=== PATIENT | male | born 1965 | race Caucasian/White ===

== ENCOUNTER 2018-08-25 06:14 | Inpatient (IN) | payer OTHER ==
--- NOTE | 2018-08-12 13:41 | HP ---
AMENDED REPORT NOW INCLUDES DESIGNATED COSIGNER HISTORY AND PHYSICAL: DATE OF ADMISSION/SURGERY: 08/25/18 DATE OF OFFICE VISIT: 08/12/18 SURGEON: Zeenat Gamboa MD *(DICTATED BY RICARDA GOFF) PROCEDURE: Right total hip arthroplasty. CHIEF COMPLAINT: Right hip pain. HISTORY OF PRESENT ILLNESS: Mr. Riley is a 52-year-old gentleman with end - stage osteoarthritis of the right hip. He has failed conservative treatment and elected to proceed with a right total hip arthroplasty. PAST MEDICAL HISTORY: Hypertension. PAST SURGICAL HISTORY: Denies. CURRENT MEDICATIONS: 1. Lisinopril 5 mg daily. 2. Meloxicam 15 mg daily. 3. Gabapentin. ALLERGIES: No known drug allergies. FAMILY HISTORY: Cancer. SOCIAL HISTORY: He is a 52-year-old gentleman, lives with his . He does not smoke or use drugs. Uses occasional alcohol. REVIEW OF SYSTEMS: A complete 14-point review of systems was reviewed with the patient. He denies history of DVT, PE, hepatitis, HIV, or anesthesia problems. PHYSICAL EXAMINATION GENERAL: He is well developed, well nourished, in no acute distress. VITAL SIGNS: He stands 75 inches tall. He weighs 220 pounds. His blood pressure 134/84, his heart rate is 76. HEENT: Normocephalic, atraumatic. NECK: Supple. No palpable lymph nodes. PULMONARY: Lungs are clear to auscultation bilaterally. CARDIO: Regular rate and rhythm. Strong S1, S2. ABDOMEN: Soft, nontender, nondistended. NEUROLOGICAL: He is alert and oriented x3. MUSCULOSKELETAL: Right lower extremity, the skin is intact. There are no open wounds or abrasions. He walks with an antalgic type gait favoring his right hip. He has decreased internal and external rotation of the right hip. He has 2 + dorsalis pedis pulse, intact sensation and his lower extremity muscle group strengths are intact at 5/5. ASSESSMENT AND PLAN: Mr. Riley is a 52-year-old gentleman with end-stage osteoarthritis of the right hip. He has failed conservative treatment and elected to proceed with a right total hip arthroplasty. The surgery is scheduled for 08/25/[address] Gamboa discussed the risks and benefits of the surgery at today's visit and all of his questions were answered. He will follow up with Dr. Gamboa 2 weeks after the surgery. RICARDA GOFF [id number]/CPS #: [id number] MTDD
[~2018-08-25 06:14] MED LIST: Buffered Lidocaine 0.9% SYRIN* 5 ML/SYR SYRINGE INTRADERM ONE; Dexamethasone IV* 4 MG/ML 1 ML (4 MG) IV SLOW PU ONE; Famotidine IV* 10 MG/ML 2 ML (20 mg) IV ONE
--- OUTSIDE RECORDS SUMMARY | 2018-08-25 06:19 | XMS REPORT ---
:1965 External Reference #:[id number] Author Organization [facility] Address [address] [place] [address] [place] [address] Phone [phone] Care Team Providers Name Role Phone Mark Macias MD Primary Care Physician Unavailable Payers Type Date Identification Numbers Payment Provider Subscriber Commercial Policy Number: [id number] [employer] Hien Riley Group Number: [id number] [id number] PayID: [id number] [place] [address] Problems Date Description Provider Status Onset: 07/10/2015 Hemicrania continua Remi Pringle M.D. Active Onset: 12/06/2017 Localized, primary osteoarthritis of Zeenat Gamboa M.D. 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 Gabapentin Active Capsules 100mg 210cap 2 caps Remi S. 000 s every Pino, morning, M.D. 2 every afternoon , and 3 caps at bedtime Glucosamine Active Capsules 500mg 2 by Unknown Sulfate 000 mouth every day Lisinopril Active Tablets 5mg 1 by Unknown 000 mouth every day GNP Allergy-D 00/00/0 Active Tablets ER 60-120mg Unknown 12 Hour 000 12HR Allergy & Congestion July-D 12 0000/0 Hx Tablets ER 60-120mg prn Unknown Hour Allergy & 000 - 12HR Congestion 018 Vital Signs Date Vital Result Comment 08/12/2018 Height 75 inches 6'3" Weight 220.00 lb BP Systolic 134 mmHg BP Diastolic 84 mmHg Respiratory Rate 16 /min Pain Level 4 BMI (Body Mass Index) 27.5 kg/m2 07/22/2018 Height 75 inches 6'3" Weight 221.00 lb BP Systolic Sitting 148 mmHg BP Diastolic Sitting 100 mmHg BMI (Body Mass Index) 27.6 kg/m2 04/06/2018 Height 75 inches 6'3" Weight 210.00 lb BP Systolic 125 mmHg BP Diastolic 83 mmHg Respiratory Rate 16 /min Pain Level 4 BMI (Body Mass Index) 26.2 kg/m2 12/06/2017 Height 75 inches 6'3" Weight 220.00 lb Heart Rate 68 /min BP Systolic 136 mmHg BP Diastolic 84 mmHg BMI (Body Mass Index) 27.5 kg/m2 07/21/2017 Height 75 inches 6'3" Weight 221.12 lb Heart Rate 82 /min BP Systolic 134 mmHg BP Diastolic 100 mmHg BMI (Body Mass Index) 27.6 kg/m2 07/21/2016 Height 75 inches 6'3" Weight 220.00 lb Heart Rate 60 /min BP Systolic Sitting 128 mmHg BP Diastolic Sitting 86 mmHg Respiratory Rate 14 /min BMI (Body Mass Index) 27.5 kg/m2 07/10/2015 Height 75 inches 6'3" Weight 218.00 lb Heart Rate 60 /min BP Systolic Sitting 136 mmHg BP Diastolic Sitting 82 mmHg Respiratory Rate 16 /min BMI (Body Mass Index) 27.2 kg/m2 07/10/2014 Height 75 inches 6'3" Weight 220.00 lb Heart Rate 67 /min BP Systolic Sitting 128 mmHg BP Diastolic Sitting 80 mmHg Respiratory Rate 16 /min BMI (Body Mass Index) 27.5 kg/m2 04/11/2013 Height 75 inches 6'3" Weight 220.00 lb Heart Rate 56 /min BP Systolic 150 mmHg BP Diastolic 86 mmHg Respiratory Rate 12 /min BMI (Body Mass Index) 27.5 kg/m2 09/27/2012 Heart Rate 56 /min BP Systolic 150 mmHg BP Diastolic 92 mmHg Respiratory Rate 16 /min Results Description No Information Procedures Date CPT Code Description Status 01/07/2018 42760 Colonoscopy Flexible Remove Tumor/Polyp/Lesion Snare Completed Technique 01/07/2018 27410 Colonoscopy Flexible W/Biopsy Completed 01/07/2018 Colonoscopy Completed Encounters Type Date Location Provider CPT E/M Dx Office Visit 07/22/2018 [facility] Pringle 76499 G44.51 9:30a Varinder Office Visit 04/06/2018 [facility] 54447 M16.11 9:15a Elvira Reeder M25.551 Office Visit 12/06/2017 9:00a [facility] M.D. 38967 M16.11 Elvira M25.551 M25.552 Office Visit 07/21/2017 10:15a [facility] Soto 76653 G44.51 Varinder Pringle Office Visit 07/21/2016 9:30a [facility] Soto 11479 G44.51 Varinder Pringle Office Visit 07/10/2015 9:45a [facility] Soto 38815 339.41 [facility] P[facility] M.D. Office Visit 07/10/2014 10:45a Gayla Soto 01940 339.41 [facility] M.D. Office Visit 09/07/2013 10:15a [facility] M.D. 88166 716.95 [facility] Office Visit 04/11/2013 3:15p Gayla Soto 23766 339.41 [facility] P[facility] M.D. Office Visit 01/19/2013 9:30a [facility] M.D. 79604 716.95 C.M.A. Office Visit 09/27/2012 11:45a [facility] Soto 72717 339.41 [facility] P[facility] M.D. Plan of Care Future Appointment(s):08/25/2018 9:30 am - Ze[facility]at Gamb[facility] M.D. at [facility]08/12/2018 - Zeenat Gamboa M.D.M25.551 Pain in right hipFollow up:Follow up: 2 weeks after legslqkV69.11 Unilateral primary osteoarthritis, right hip
[2018-08-25] MEDS ORDERED: Dexamethasone IV* 4 MG/ML 1 ML (4 MG) ONE (06:51)
[2018-08-25] MEDS ORDERED: Morphine VIAL* 10 MG/ML 1 ML VIAL ONE (06:51)
[2018-08-25] MEDS ORDERED: Famotidine IV* 10 MG/ML 2 ML (20 mg) ONE (06:51)
[2018-08-25] MEDS ORDERED: ceFAZolin 2 GM PREMIX in ORs 2 GM/50 ML BAG IVPB ONE (06:51)
[2018-08-25] MEDS ORDERED: celeCOXIB CAP* 200 MG PO ONE (07:34)
[2018-08-25] MEDS ORDERED: celeCOXIB CAP* 100 MG ONE (07:38)
[2018-08-25] MEDS ORDERED: fentaNYL* 50 MCG/ML 2 ML VIAL (100 MCG VIAL) ONE (07:42)
[2018-08-25] MEDS ORDERED: Midazolam* 1 MG/ML 2 ML VIAL (2 MG) ONE ×2 (07:42→07:43)
[2018-08-25] MEDS ORDERED: Propofol* 10 MG/ML 20 ML BTL IV PUSH ONE ×2 (07:44→09:27)
[2018-08-25] MEDS ORDERED: Phenylephrine INJ* 10 MG/ML 1 ML VIAL (10 MG) ONE (08:49)
[2018-08-25] MEDS ORDERED: HYDROmorphone INJ1* 1 MG/ML SYRINGE IV PRN (09:18)
[2018-08-25] MEDS ORDERED: Naloxone* 0.4 MG/ML 1 ML VIAL IV PRN (09:18)
[2018-08-25] MEDS ORDERED: Acetaminophen IV 1GM/100ML * 10 MG/ML VIAL IVPB PRN (09:18)
[2018-08-25] MEDS ORDERED: Ondansetron INJ* 2 MG/ML VIAL IV PRN ×2 (09:23→11:04)
--- NOTE | 2018-08-25 10:24 | RAD ---
CPT II Codes: G9500 INDICATION: Right hip pain TECHNIQUE: Intraoperative fluoroscopy was provided during right total hip arthroplasty. FINDINGS: A single spot film in the AP view the BX anatomic alignment of the acetabular component and femoral shaft component of the right hip prosthesis. The femoral head prosthesis has yet to be installed. Visualized bones are grossly intact and aligned. Fluoroscopy time: 1 second IMPRESSION: As above.
[2018-08-25] MEDS ORDERED: Acetaminophen IV 1GM/100ML * 100 ML ONE (10:48)
[2018-08-25] MEDS ORDERED: Bisacodyl SUPP* 10 MG SUPP PR PRN (11:04)
[2018-08-25] MEDS ORDERED: Magnesium Hydroxide LIQ* 30 ML UDC PO PRN (11:04)
[2018-08-25] MEDS ORDERED: Cyclobenzaprine TAB* 10 MG PO PRN (11:04)
[2018-08-25] MEDS ORDERED: Morphine VIAL* 4 MG/ML VIAL (1 ml vial) IV PRN (11:04)
[2018-08-25] MEDS ORDERED: oxyCODONE/Acetamin 5/325 MG* TAB PO PRN (11:04)
[2018-08-25] MEDS ORDERED: Acetaminophen TAB* 325 MG PO PRN (11:04)
[2018-08-25] MEDS ORDERED: diPHENhydraMINE IV* 50 MG/ML 1 ml VIAL (BENADRYL) IV PRN (11:04)
--- NOTE | 2018-08-25 11:54 | RAD ---
HISTORY: S/P RTHA COMPARISONS: August 12, 2018 VIEWS: 3 , Frontal view of the pelvis with frontal and crosstable lateral views of the right hip FINDINGS: BONE DENSITY: Normal. BONES: The patient is status post right hip arthroplasty. There is no hardware failure or osteolysis. JOINTS: The patient is status post right hip arthroplasty. ALIGNMENT: There is no dislocation. SOFT TISSUES: Unremarkable. OTHER FINDINGS: None. IMPRESSION: STATUS POST RIGHT HIP ARTHROPLASTY
[2018-08-25] MEDS: oxyCODONE/Acetamin 5/325 MG* TAB PO PRN ×2 (12:36→20:07)
[2018-08-25] MEDS: oxyCODONE TAB* 5 MG TAB PO PRN (15:34)
[2018-08-25] MEDS: ceFAZolin 1 GM in Dextrose (*) 1 GM/50 ML BAG IVPB SCH (15:34)
[2018-08-25] MEDS ORDERED: Warfarin TAB(*) 6 MG PO ONE (17:00)
[2018-08-25] MEDS: Docusate CAP* 100 MG PO SCH (20:07)
[2018-08-25] MEDS: Magnesium Hydroxide LIQ* 30 ML UDC PO SCH (20:08)
[2018-08-25] MEDS ORDERED: Gabapentin CAP(*) 300 MG PO SCH (21:00)
[2018-08-26] MEDS: oxyCODONE/Acetamin 5/325 MG* TAB PO PRN ×3 (00:36→12:18)
[2018-08-26] MEDS: ceFAZolin 1 GM in Dextrose (*) 1 GM/50 ML BAG IVPB SCH ×2 (00:36→08:11)
--- NOTE | 2018-08-26 05:05 | CONS ---
CC: Dr. Macias; Dr. Gamboa * CONSULTATION REPORT: DATE OF CONSULT: 08/25/18 PROVIDER: Emani Blackburn NP REQUESTING PHYSICIAN: Dr. Gamboa. PRIMARY CARE PROVIDER: Dr. Macias. HISTORY OF PRESENT ILLNESS: Mr. Riley is a 52-year-old male with a past medical history significant for hypertension and osteoarthritis, who presented for elective total right hip replacement with Dr. Gamboa. We were asked to see and consult the patient due to his history of hypertension. The patient was seen and evaluated in the PACU. He has no complaints at this time. He denies any recent fevers, weight loss, chest pain, shortness of breath , cough, congestion. Denies any nausea, vomiting, or abdominal pain. Denies any hematuria, dysuria. Denies any focal weakness or sensory loss. Denies any visual complaints. Denies any dysphagia. Denies any rashes or lesions. Denies any anxiety or depression. PAST MEDICAL HISTORY: Significant for: 1. Hypertension. 2. Osteoarthritis. PAST SURGICAL HISTORY: None. MEDICATIONS: Home medications include: 1. Lisinopril 5 mg p.o. daily. 2. Gabapentin 200 mg b.i.d. and then 300 mg at h.s. 3. Meloxicam p.r.n. 4. July D p.r.n. 5. Glucosamine p.o. daily. ALLERGIES: He has no known drug allergies. FAMILY HISTORY: The patient denies any family history of coronary artery disease or diabetes. He does report mother with a history of skin cancer and father with a bile duct cancer. SOCIAL HISTORY: He denies any tobacco use. Reports occasional alcohol use. Denies any illicit drug use. He is . Surrogate decision maker in the event he is unable to make his own decisions is his , Hien Riley; her cell phone number is [phone]. REVIEW OF SYSTEMS: The patient denies any fever or chills. Denies any weight loss. Denies any chest pain or shortness of breath. Denies any cough, congestion, hemoptysis. Denies any nausea, vomiting, or diarrhea. Denies any abdominal pain. Denies any gross hematuria or dysuria. Denies any focal weakness or sensory loss. Denies any visual complaints. Denies any dysphagia. Denies any increased arthralgias or myalgias. Denies any rashes or lesions or open sores. Denies any depression or anxiety. Review of 14 systems was completed. All others are negative. PHYSICAL EXAM: Vitals: Blood pressure was 121/79, heart rate was 54, respirations were 17, O2 saturation on room air was 97%, temperature was 97.9. General: At this time, Mr. Riley is sitting on the bed in PACU. He is in no acute distress. He denies any pain at this time. Head is atraumatic, normocephalic. Eyes: EOMs are intact. Sclerae anicteric and not pale. Oral mucosa appears to be moist. Neck is supple. Lungs are clear to auscultation bilaterally. No wheezes, rales, or rhonchi. Cardiac: S1, S2. Regular rate and rhythm. No murmurs, rubs, or gallops. Abdomen is soft and nontender. Bowel sounds are present x4. Extremities: Pulses are +2. Radial and pedal pulses are +2 bilaterally. He is able to move all 4 extremities. Neurologic: He is awake, alert, and oriented x3. Speech is clear. There are no gross focal deficits. Skin is intact. He does have a dressing that is dry and intact to his right hip. DIAGNOSTIC STUDIES/LAB DATA: WBCs from 08/12/18 were 5.0, RBC 4.88, hemoglobin was 14.8, hematocrit was 44, platelet count was 319. INR was 0.94. Sodium 140 , potassium 4.3, chloride 105, carbon dioxide was 31, anion gap was 4, BUN was 13, creatinine 1.02, glucose was 73. ASTs were 23, ALTs were 25. Urine was within normal limits with exception of 1+ blood. He had hip x-ray that is status post right hip arthroplasty. EKG showed sinus rhythm. No ST-T wave changes. ASSESSMENT AND PLAN: Mr. Riley is a 52-year-old male who presented for an elective right total hip arthroplasty with Dr. Gamboa. We were asked to see and evaluate him due to his history of hypertension. 1. Right hip arthroplasty. Management per Orthopedics, PT/OT per Ortho, DVT prophylaxis per Orthopedics. 2. Hypertension. He can continue on his lisinopril 5 mg p.o. daily as previously prescribed. 3. DVT prophylaxis per orthopedics. 4. FEN: He can continue on a heart healthy, low-sodium diet, decaf is okay. 5. Code status, he is a full code. TIME SPENT: Time spent on this consultation was 45 minutes. Greater than half that time was spent on [id number] with the patient obtaining my history and physical, the other half time was spent going over the my plan of care and implementing my plan of care. At this time, I will sign off on his case. If you need further management, please do not hesitate to contact us. Thank you for including us in his plan of care. I have discussed this with my attending, Dr. Melissa Esposito. EMANI BLACKBURN, RICHARD [id number]/CPS #: [id number] TERRENCE
[2018-08-26 05:31] LABS: Hematocrit 37 % (42-52); Hemoglobin 12.3 g/dl (14.0-18.0); Mean Platelet Volume 7.8 um3 (7.4-10.4); Platelet Count 284 10^3/ul (150-450)
[2018-08-26 05:46] LABS: EGFR Non-African American 78.2 (>60)
[2018-08-26] MEDS: Magnesium Hydroxide LIQ* 30 ML UDC PO SCH (08:11)
[2018-08-26] MEDS: Gabapentin CAP(*) 100 MG PO SCH ×2 (08:11→14:11)
[2018-08-26] MEDS: Docusate CAP* 100 MG PO SCH (08:11)
[2018-08-26] MEDS: oxyCODONE TAB* 5 MG TAB PO PRN (08:18)
--- NOTE | 2018-08-26 08:18 | OP ---
DATE OF OPERATION: 08/25/18 - ROOM #341 DATE OF : 65 ATTENDING SURGEON: Zeenat Gamboa MD USED CAR SALES SUPERVISOR: RICARDA Philip. Mr. Key did help throughout the procedure with preparation of the leg, wound retraction, manipulation of the hip, and wound closure. ANESTHESIOLOGIST: Dr. Rogers. ANESTHESIA: Spinal. PRE-OP DIAGNOSIS: Severe end-stage degenerative osteoarthritis of the right hip joint. POST-OP DIAGNOSIS: Severe end-stage degenerative osteoarthritis of the right hip joint. OPERATIVE PROCEDURE: Right total hip arthroplasty. COMPLICATIONS: None. ESTIMATED BLOOD LOSS: 300 cc. SPECIMENS: Femoral head and acetabular reaming sent to pathology. HARDWARE USED: This is uncemented [employer] total hip arthroplasty hardware. For the cup a 58F Tritanium cluster hole shell, a single 20 mm screw. For the insert a Trident X3 0-degree polyethylene insert 40F. For the stent an Accolade II size 6 with a 127 degree neck. For the head a 40 +0 Biolox delta ceramic V40 femoral head with adaptor sleeve. BRIEF HISTORY/INDICATION: Mr. Riley is a 53-year-old gentleman with years of increasingly severe right hip pain. Radiographs showed ehyl-mp-glsw arthritis. Due to continued pain and decreased quality of life, the patient elected to undergo a right total hip arthroplasty. He failed conservative treatment with antiinflammatories, pain pills, and activity modification. Informed consent was obtained from the patient. He understood the risks of surgery included, but were not limited to bleeding, infection, damage to nearby structures, continued pain, need for further surgery, intraoperative fracture, nerve palsy, hardware failure or loosening, dislocation, leg length discrepancy , stroke, heart attack, blood clot, and . He wished to proceed. INTRAOPERATIVE FINDINGS: Intraoperatively, the patient was noted to have severe end-stage arthritis with extensive loss of cartilage along the femoral head and acetabulum. He had extensive osteophyte formation around the femoral head and neck. DESCRIPTION OF PROCEDURE: Mr. Riley was identified in the preanesthesia unit. His right lower extremity was marked as the correct operative site. Informed consent was signed and placed in the chart. The patient was taken to the operating room and placed under spinal anesthesia. A Soto catheter was placed. The patient was placed in the left lateral decubitus position on the peg board. All bony prominences were well padded. Right lower extremity was prepped and draped in the usual sterile fashion. Preop time-out was made to correctly identify the patient, side and site. Appropriate perioperative antibiotics were given within 1 hour of incision. A standard posterior hip incision of 12 cm was made. A 10 blade was used to make the skin incision. Electrocautery was used to dissect down to the lateral fascia layer. A new 10 blade was used to make an incision in the lateral fascia layer in line with the skin incision. Charnley retractor was placed. The piriformis and conjoint tendons were elevated off the posterolateral femur using electrocautery and tagged with #5 Ethibond. Electrocautery was then used to make a standard posterolateral capsular flap. This was also tagged with #5 Ethibond. The hip was carefully dislocated. Lesser troch to the center of the femoral head measured 58 mm. Oscillating saw was used to make the appropriate femoral neck cut and the head was removed. After appropriate placement of retractor, the acetabulum was well visualized. Femur was retracted anteriorly. Long-handled knife was used to sharply remove any remaining labrum from the acetabular rim. The acetabulum was sequentially reamed up to a size 57. The 57 reamer obtained a bleeding subchondral bone bed . Final implant chosen was a 58 Tritanium cluster hole shell. This was impacted into the acetabulum without difficulty. There was excellent stability with appropriate anteversion and abduction angle. A single 20-mm screw was placed in the superior posterior quadrant for extra stability. Trident X3 0- degree liner 40F was chosen. This was impacted into the acetabular cup without difficulty. Stability of the liner was checked and rechecked and noted to be stable. Attention was turned next to preparation of the femur. A canal finder was used to enter the proximal femur. The femoral canal was sequentially broached up to a size 6. Size 6 broach had excellent fit and stability. A 127 neck trial was chosen with a 40 +0 head trial. Lesser troch to the center of the femoral head measured 58 mm. The hip was reduced and taken through range of motion. The hip was stable in all positions. There was good soft tissue tension and appropriate leg lengths. All trials were carefully removed. Final implant chosen was an Accolade II size 6 with a 127 degree neck. This was impacted into the femoral canal without difficulty. Stem was stable with appropriate anteversion. A 40 +0 Biolox delta ceramic femoral head with +0 adaptor sleeve was chosen. This was impacted on to the femoral neck. Lesser troch to the center of the femoral head measured 58 mm. The hip was reduced and taken through a range of motion. The hip was stable in all positions. There was good soft tissue tension and appropriate leg lengths. Previously tagged capsule and tendons were reapproximated to the posterolateral femur through trochanteric drill holes. The lateral fascia layer was closed using interrupted #1 Vicryl. The rest of the incision was closed in a layered fashion using 0 and 2-0 Vicryl. Skin was closed using running 3-0 Monocryl and Dermabond. Sterile Adaptic, 4x4's, and paper tape were placed over this. The patients's anesthesia was reversed without difficulty. He was taken to the PACU in stable condition. Intended weightbearing will be weightbearing as tolerated. Intended DVT prophylaxis will be Coumadin with a Lovenox bridge. [id number]/[facility] #: [id number] TERRENCE
[2018-08-26] MEDS ORDERED: Vitamin THERAPEUTIC TAB PO SCH (09:00)
[2018-08-26] MEDS ORDERED: Lisinopril TAB* 5 MG PO SCH (09:00)
--- NOTE | 2018-08-26 09:25 | PN ---
Progress Note - Progress Note Date of Service: 08/26/18 SOAP: Subjective: []Patient seen OOB in chair, being interviewed by OT. Feels good, minimal pain with Percocet use. Denies SOB, CP, palpitations, N/V. Hopes to go home this afternoon after PT session. Objective: [] Vital Signs Temp 98.0 F 08/26/18 07:55 Pulse 76 08/26/18 07:55 Resp 16 08/26/18 08:18 BP 142/86 08/26/18 07:55 Pulse Ox 99 08/26/18 07:55 Intake & Output 08/25/18 08/26/18 08/26/18 18:59 06:59 18:59 Intake Total 2650 1053 360 Output Total 825 1450 Balance 1825 -397 360 Weight 219 lb Intake: IV Fluids 1875 LR 1825 NS 50ML, Cefazolin 2G 50 IVPB 55 53 ABX - CEFAZOLIN 53 LR 55 Oral 720 1000 360 Output: Soto 825 1450 Other: # Bowel Movements 0 1 Estimated Stool Amount Medium Laboratory Results - last 24 hr 08/26/18 08/26/18 08/26/18 05:02 05:02 05:02 Hgb 12.3 L Hct 37 L Plt Count 284 MPV 7.8 INR (Anticoag Therapy) 1.00 Sodium 138 Potassium 3.8 Chloride 103 Carbon Dioxide 30 Anion Gap 5 BUN 14 Creatinine 1.00 Est GFR ( Amer) 94.6 Est GFR (Non-Af Amer) 78.2 BUN/Creatinine Ratio 14.0 Glucose 110 H Calcium 8.5 L Right hip incision: C/D/I, no drainage on dressings, new 4x4s applied Active DF/PF right ankle calf NT and soft sensation and circulation intact distally Assessment: []s/p RTH POD #1 Plan: []PT/ OT WBAT RLE Hip precautions Coumadin with Lovenox bridge: 8mg Coumadin today Med-Bed : Percocet Discharge home after PT this afternoon Follow up with Dr. Gamboa as scheduled 10-14 days
[2018-08-26 11:51] VITALS: BP 148/78
[2018-08-26] MEDS ORDERED: Enoxaparin(*) 40 MG/0.4 ML SYR SUBCUT SCH (12:00)
[2018-08-26] MEDS ORDERED: Warfarin TAB(*) 4 MG PO ONE (17:00)
--- NOTE | 2018-08-27 02:05 | DS ---
DISCHARGE SUMMARY: DATE OF ADMISSION: 08/25/18 DATE OF DISCHARGE: 08/26/18 ATTENDING PHYSICIAN: Dr. Zeenat Gamboa.* (DICTATED BY RICARDA THAKUR) ADMISSION DIAGNOSIS: Severe end-stage degenerative osteoarthritis of the right hip joint. DISCHARGE DIAGNOSIS: Severe end-stage degenerative osteoarthritis of the right hip joint. SURGERY PERFORMED: Right total hip arthroplasty. HOSPITAL COURSE: The patient is a pleasant 53-year-old male who had years of increasingly severe right hip pain. His x-rays revealed yyic-lz-wfoc degenerative arthritis. Due to continued pain and decreased quality of life, the patient elected to proceed with the aforementioned procedure. He was taken to the operating room under the care of Dr. Zeenat Gamboa on the date of . He tolerated the procedure well and left the operating room in stable condition. Postoperatively, he did very well with physical therapy and occupational therapy. His pain was under adequate control with Percocet. He had no nausea or vomiting postoperatively. He mastered his PT and OT goals and was found to be stable medically and orthopedically for discharge to home on the date of 08/26/18. CONDITION ON DISCHARGE: The patient's vital signs are stable. Temperature 98, pulse 76, respiratory rate 16, O2 sats 99% on room air, blood pressure 142/86. Examination of his right hip incision shows no drainage on his dressings. There is no erythema, warmth, evidence of infection. His calf is soft and nontender and his neurovascular status is grossly intact with active dorsiflexion and plantar flexion of his right ankle. PLAN: Discharged to home this afternoon after his afternoon physical therapy session. He was provided with a prescription of Percocet 5/325 mg 1 to 2 tabs p.o. q.4 hours p.r.n. pain, #30, zero refills. He is also provided with a prescription of Coumadin 2 mg to be taken 1 to 3 tablets daily at 5 p.m. as directed by our office. He will take 8 mg on 08/26/18; 6 mg on Wednesday , 08/27/18; and 4 mg on 08/28/18 with a repeat INR, VNS blood draw on Wednesday with further doses to follow. He will follow up in the office as scheduled with Dr. Gamboa in roughly 10 to 14 days and will call if he has any questions or concerns prior. RICARDA THAKUR [id number]/[facility] #: [id number] [facility]
== END 2018-08-26 14:25 | disposition home health service (06) | DRG 470 ==
LOC: AA 06:14 → SSU 12:26
PROVIDERS: ADMIT Orthopaedic Surgery Adult Reconstructive Orthopaedic Surgery; ATTEND Internal Medicine
PROC: 0SR904A Replacement of Right Hip Joint with Ceramic on Polyethylene Synthetic Substitute, Uncemented, Open Approach (ICD-10-PCS; principal; 2018-08-25 08:00)
DX: M16.11 Unilateral primary osteoarthritis, right hip (principal); I10 Essential (primary) hypertension; Z80.0 Family history of malignant neoplasm of digestive organs; J30.2 Other seasonal allergic rhinitis; G44.51 Hemicrania continua; M25.751 Osteophyte, right hip; Z79.01 Long term (current) use of anticoagulants; Z72.89 Other problems related to lifestyle; Z82.49 Family history of ischemic heart disease and other diseases of the circulatory system; Z80.8 Family history of malignant neoplasm of other organs or systems
CPT/HCPCS: 36415; 72170; 80048; 85014; 85018; 85049; 85610; A9270-GY; J0690; J1100; J1650; J2250; J2270; J2704; J3010